=== PATIENT | female | born 1995 | race Hispanic/Latino ===

== ENCOUNTER 2016-12-14 00:02 | Emergency (ER) | payer OTHER ==
[~2016-12-14] VITALS: Ht 152.4 cm; Wt 51.4 kg
[~2016-12-14 00:02] MED LIST: PRE20 PO
[2016-12-14 00:17] VITALS: BP 116/82; PULSE 86; RESP 18; O2SAT 100
--- NOTE | 2016-12-14 00:27 | ED.REPORT ---
HPI-Abd Pain F Under 38 Date of Service Dec 14, 2016 ED Provider: Dr. Jarquin Pt is a healthy 21 year old female who presents to the ED with complaints of left sided flank pain that started a couple of days ago. She reports that this pain is exacerbated with deep breathing or if she "laughs really hard". She denies any fever, nausea, vomiting, or any sense of a urinary tract infection. Pt reports no other complaints. Nursing Notes Stated Complaint: FLANK PAIN Chief Complaint: Female Abdominal Pain Nursing Notes Reviewed: Yes Allergies: Coded Allergies: No Known Allergies (Unverified , 10/23/15) Scheduled Prednisone (PredniSONE) 20 Mg Tablet 20 MG PO TID General Time Seen by MD: 00:26 Chief Complaint Flank pain left Hx Obtained From: Patient Arrived By: Walk-in Sudden in Onset?: Yes Onset Occurred: 3 days ago Symptom Duration: Since onset Location: : Flank left Quality: Painful Severity: Current: Mild Severity: Maximum: Moderate Similar Sx Previous: Yes Past Medical History Past Medical History None Past Surgical History Reports: Appendectomy Family History Noncontributory Smoking History Never Smoker Ambulatory Status Independent Review of Systems Constitutional: Denies: Chills, Fever, Malaise, Weakness - generalized Respiratory: Denies: Shortness of breath, Wheezing GI: Denies: Abdominal pain, Constipation, Diarrhea, Nausea, Vomiting Female: Reports: Flank pain, Denies: Dysuria, Urinary frequency, Urinary urgency Complete sys rev & neg: except as marked. Physical Exam Initial Vital Signs Vital Signs (First) Date Time Temp Pulse Resp B/P Pulse Ox O2 Delivery O2 Flow Rate FiO2 12/14/16 00:17 36.3 86 18 116/82 100 Room Air Initial VS: Reviewed Head / Eyes: Atraumatic, Normocephalic, PERRL ENT: Mucous membranes moist, Conjunctiva normal, No scleral icterus Neck: Supple, Non-tender, Full range of motion Skin: Warm, Dry, No cyanosis Neurologic: Alert, Oriented, Nonfocal General/Constitutional: Awake, Alert, Well appearing, Well developed, Well nourished, Cooperative Respiratory / Chest: Atraumatic, Breath sounds NL, Breath sounds = bilat, No respiratory distress Cardiovascular: Heart rate NL, Regular rhythm, Heart sounds NL, No gallop, No murmurs, No rubs Abdomen: Atraumatic, Soft, Non-tender, No guarding, No rebound Back: Atraumatic, Inspection NL, No CVA tenderness Interpretation & Diagnostics Lab Results Interpretation Result Diagram: 12/14/16 0129 12/14/16 0129 Test 12/14/16 00:30 12/14/16 01:29 Urine Color Yellow (YELLOW) Urine Appearance Clear (CLEAR,HAZY) Urine pH 6.5 (5.0-8.0) Urine Specific [place] 1.025 (1.003-1.035) Urine Protein Negativemg/dL (NEG,TRACE) Urine Glucose (UA) Negativemg/dL (NEGATIVE) Urine Ketones Negativemg/dL (NEGATIVE) Urine Occult Blood Small (NEGATIVE) Urine Nitrite Negative (NEGATIVE) Urine Bilirubin Negative (NEGATIVE) Urine Urobilinogen Normalmg/dL (NORMAL) Urine Leukocyte Esterase Negative (NEGATIVE) Urine RBC 3-10/hpf (0-2) Urine WBC 0-5/hpf (0-5) Urine Epithelial Cells Occasional/hpf (NONE-MOD) Urine Crystals Amorphous urates (NONE Urine Bacteria Few/hpf (NONE-FEW) Urine Hyaline Casts None/lpf (NONE) Urine Granular Casts None seen (NONE SEEN) Urine Waxy Casts None seen (NONE SEEN) Urine Red Blood Cell Casts None seen (NONE SEEN) Urine White Blood Cell Casts None seen (NONE SEEN) Urine Mucus Present (None Seen) Urine Trichomonas None seen (NONE SEEN) Urine Yeast None (NONE SEEN) Urinalysis Comment None Urine Culture Reflexed Not indicated Hold Urine Received (Received) White Blood Count 7.5th/mm3 (3.8-10.1) Red Blood Count 4.49mil/mm3 (3.90-5.20) Hemoglobin 13.0g/dL (12.0-15.6) Hematocrit 39.4% (35.0-46.0) Mean Corpuscular Volume 87.8fL (81-100) Mean Corpuscular Hemoglobin 29.0pg (27.0-35.0) Mean Corpuscular Hemoglobin Concent 33.0% (32.0-37.0) Red Cell Distribution Width 13.1% (12.3-15.4) Platelet Count 263bil/L (150-400) Neutrophils (%) (Auto) 44.3% (40-74) Lymphocytes (%) (Auto) 45.2% (14-46) Monocytes (%) (Auto) 8.0% (4-12) Eosinophils (%) (Auto) 2.0% (0-5) Basophils (%) (Auto) 0.4% (0-3) D-Dimer < 0.5mg/L (<0.50) Sodium Level 142mEq/L (134-144) Potassium Level 3.5mEq/L (3.5-5.2) Chloride Level 104mEq/L (97-108) Carbon Dioxide Level 25mmol/L (18-29) Blood Urea Nitrogen 12mg/dL (6-20) Creatinine 0.39mg/dL (0.57-1.00) Estimat Glomerular Filtration Rate 292mL/min (>59) Glucose Level 105mg/dL (60-99) Calcium Level 9.5mg/dL (8.5-10.1) Total Bilirubin 0.2mg/dL (0.0-1.2) Aspartate Amino Transf (AST/SGOT) 20U/L (0-50) Alanine Aminotransferase (ALT/SGPT) 22U/L (0-32) Alkaline Phosphatase 118U/L (25-150) Total Protein 7.6g/dL (6.4-8.4) Albumin 4.6g/dL (3.4-5.0) Hold Gage Top Tube Received (Received) Re-Eval/Medical Decision Med Decision/Clinical Course I discussed outpatient follow-up versus emergency Department CT scan. Enma prefers to have the CT scan performed tonight because she does not have very good follow-up. Taking count that she has flank pain with hematuria a CT scan was indicated. CT scan was essentially normal. We will culture her urine. Start on empiric Bactrim. Naprosyn for pain. Close outpatient follow-up. Source of Hx: Old records Re-Evaluation/Progress : Re-Evaluation/Progress Note: Pt is rechecked and informed of her lab results and the plan to discharge her at this time. She understands and agrees, all questions are addressed. Counseled Regarding: Diagnosis, Lab results, Need for follow-up, When/why to return to ED Discharge & Departure Shift Change Sign-Out Response to Therapy: Improved Primary Impression: Flank pain Additional Impression: Hematuria Disposition: Home Discharge Condition All VS Reviewed: Yes Condition: Stable Patient Instructions: Acute Abdominal Pain (ED), Acute Hematuria (ED) Additional Instructions: The cause of your pain is uncertain. You do have blood in your urine so perhaps you are passed a kidney stone or possibly this could be an infection. The CAT scan did not show any acute kidney stones. No signs of hydronephrosis. We will culture your urine. I recommend that you set up a follow-up with your primary care physician. You may need further imaging if the pain persists. Take Naprosyn twice daily as directed for pain. Call your doctor tomorrow to set up a follow-up. Return if any problems or any worsening symptoms. The urine culture should be available within 3-4 days. Referrals: [facility] Tal Attestation Portions of this note were transcribed by Vicky Luis. I, Dr. Jarquin personally performed the history, physical exam and medical decision-making; I reviewed and confirmed the accuracy of the information in the transcribed note. Signed by: Tal Gan, 12/13/2016 [Time]. copies to: [facility] Nakul Jarquin DO Dec 14, 2016 00:27 AC LUIS Dec 14, 2016 01:00
[2016-12-14 01:05] LABS: APPEARANCE,URINE CLEAR (CLEAR,HAZY); COLOR,URINE YELLOW (YELLOW); OCCULT BLOOD,URINE SMALL (NEGATIVE); PH,URINE 6.5 (5.0-8.0); UROBILINOGEN,URINE NORMAL (NORMAL)
[2016-12-14 01:39] LABS: BASOPHILS % (AUTO) 0.4 % (0-3); Mean Corpuscular Volume 87.8 fL (81-100); NEUTROPHILS % (AUTO) 44.3 % (40-74); Platelet Count 263 bil/L (150-400)
[2016-12-14 03:21] VITALS: BP 110/75; PULSE 78; RESP 16; O2SAT 98
--- NOTE | 2016-12-14 10:09 | DRSVH ---
PROCEDURE: CT KUB ([id number]) INDICATIONS: left flank pain, hematuria TECHNIQUE: Noncontrast 5 mm thick sections acquired from the diaphragms to the symphysis. 5 mm thick coronal an d sagittal reformats were then performed. For radiation dose reduction, the following was used: aut omated exposure control, adjustment of mA and/or kV according to patient size. COMPARISON: Located Within [facility], CT, CT ABD PELVIS W CON, 10/24/2015, 1:40. FINDINGS: Image quality: Excellent. Lung bases: Lung bases are clear. Heart size is normal. Urinary system: Both kidneys are normal in size. No kidney stones. No hydronephrosis or perinephri c fat stranding. Both ureters appear non-dilated throughout their expected courses. Bladder wall th ickness is normal; no calcified bladder stones. Other solid organs: Liver and spleen are normal in size. Gallbladder is within normal limits. Panc reas is normal in contours. No adrenal nodules. Peritoneum and bowel: Unenhanced bowel loops demonstrate normal wall thickness and caliber. No free fluid or air. The appendix is surgically absent Nodes and vessels: No retroperitoneal or mesenteric adenopathy by size criteria. Aorta and inferior vena cava are normal in caliber. Abdominal wall: No ventral hernias. Pelvis: No free pelvic fluid. No inguinal hernias or adenopathy. Bones: No suspicious bony lesions. No vertebral body compression fractures. IMPRESSION: No renal stone or hydronephrosis. Dictated by: Morenita Edwards MD, PhD on 12/14/2016 at 10:03 Approved by: Morenita Edwards MD, PhD on 12/14/2016 at 10:08
== END 2016-12-14 03:16 | disposition home or self-care (01) ==
LOC: SED 00:02
DX: R10.32 Left lower quadrant pain (principal); R31.9 Hematuria, unspecified

== ENCOUNTER 2017-05-06 02:49 | Emergency (ER) | payer OTHER ==
[~2017-05-06] VITALS: Ht 152.4 cm; Wt 53.2 kg
[2017-05-06 03:01] VITALS: BP 118/75; PULSE 75; RESP 16; O2SAT 100
--- NOTE | 2017-05-06 03:04 | ED.REPORT ---
HPI-Headache Date of Service May 06, 2017 ED Provider: Dr. Young Reina MD A 22 year old female presents to the ED complaining of an intermittent, sharp headache that began at 1300 in the afternoon. Patient took Aspirin with little relief. She has also been experiencing nausea without vomiting. She denies any recent similar symptoms previously. Patient denies any visual disturbances, numbness/weakness in the extremities, neck stiffness, fever, chills or recent injuries. Nursing Notes Stated Complaint: HEADACHE,NAUSEA Chief Complaint: Headache Nursing Notes Reviewed: Yes Allergies: Coded Allergies: No Known Allergies (Unverified , 05/06/17) Scheduled Prednisone (PredniSONE) 20 Mg Tablet 20 MG PO TID Scheduled PRN Prochlorperazine Maleate (Compazine Suppository) 25 Mg Supp.rect 25 MG RC Q8 PRN PRN For Nausea/Vomiting General Time Seen by MD: 03:04 Chief Complaint Headache Hx Obtained From: Patient Arrived By: Walk-in Sudden in Onset?: No Onset Occurred: 9 - 12 hours ago Symptom Duration: Intermittent Location: : Generalized Quality: Aching, Sharp Severity: Current: Mild Severity: Maximum: Mild Associated with: Reports: Nausea, Denies: Fever, Numbness, Vomiting, Weakness Pertinent Negative: Pt denies other symptoms Recent Healthcare: No recent doctor visit, No recent hospitalization Risk-Headache )( SAH Risk Stratification RF Statements: Risk factors reviewed )( IC Mass Risk Stratification RF Statements: Risk factors reviewed Past Medical History Past Medical History None reported. Past Surgical History Appendectomy Family History Noncontributory Smoking History Never Smoker Social History Other Social History: Local resident Ambulatory Status Independent Review of Systems Constitutional: Denies: Chills, Fever GI: Reports: Nausea, Denies: Vomiting Musculoskeletal: Denies: Neck pain Neurologic: Reports: Headache, Denies: Numbness, Vision change, Weakness Complete sys rev & neg: except as marked. Physical Exam Initial Vital Signs Vital Signs (First) Date Time Temp Pulse Resp B/P Pulse Ox O2 Delivery O2 Flow Rate FiO2 05/06/17 03:01 36.3 75 16 118/75 100 Room Air Initial VS: Reviewed Extremities: Vascular intact, Neuro intact, No swelling, No tenderness Skin: Warm, Dry, No cyanosis Psychiatric: Mood/affect normal, Behavior normal, Normal thought content General/Constitutional: Awake, Alert, No acute distress Head / Eyes: Atraumatic, Normocephalic, PERRL Neck: Atraumatic, Supple, No meningismus, Full range of motion Neurologic: Oriented X3, Speech NL, No motor deficits, No sensory deficits, CN II - XII intact, Reflexes equal bilat, Cerebellar NL Respiratory / Chest: Atraumatic, Breath sounds NL, Breath sounds = bilat, No respiratory distress Cardiovascular: Heart rate NL, Regular rhythm, Heart sounds NL Interpretation & Diagnostics Lab Results Interpretation Result Diagram: 05/06/17 0337 05/06/17 0337 Test 05/06/17 03:37 White Blood Count 9.1th/mm3 (3.8-10.1) Red Blood Count 4.41mil/mm3 (3.90-5.20) Hemoglobin 13.2g/dL (12.0-15.6) Hematocrit 38.6% (35.0-46.0) Mean Corpuscular Volume 87.5fL (81-100) Mean Corpuscular Hemoglobin 29.9pg (27.0-35.0) Mean Corpuscular Hemoglobin Concent 34.2% (32.0-37.0) Red Cell Distribution Width 12.9% (12.3-15.4) Platelet Count 275bil/L (150-400) Neutrophils (%) (Auto) 56.2% (40-74) Lymphocytes (%) (Auto) 36.0% (14-46) Monocytes (%) (Auto) 5.5% (4-12) Eosinophils (%) (Auto) 1.9% (0-5) Basophils (%) (Auto) 0.3% (0-3) Erythrocyte Sedimentation Rate 20mm/hr (0-32) Hold Urine Received (Received) Sodium Level 140mEq/L (134-144) Potassium Level 3.9mEq/L (3.5-5.2) Chloride Level 102mEq/L (97-108) Carbon Dioxide Level 23mmol/L (18-29) Blood Urea Nitrogen 11mg/dL (6-20) Creatinine 0.48mg/dL (0.57-1.00) Estimat Glomerular Filtration Rate 228mL/min (>59) Glucose Level 123mg/dL (60-99) Calcium Level 9.5mg/dL (8.5-10.1) C-Reactive Protein < 0.0mg/dL (0.0-0.5) Point of Care Testing: Preg test neg - urine CT Head Interpretation IMPRESSION: Normal head CT Study: Head CT no contrast Interpretation / Wet Read by: Interpret - Radiologist (Nightshift) Re-Eval/Medical Decision Med Decision/Clinical Course 22-year-old with new onset of what is probably a migrainous headache. Negative scan tonight. No neck stiffness no neuro findings and low suspicion for meningitis or bleed. I do not believe that the risk is sufficient to justify a lumbar puncture at this point. Pain has Improved with standard migraine cocktail meds. Home with Advil migraine and Compazine suppository if needed. Follow up with PCP. Referred [facility] residency clinic if needed. Re-Evaluation/Progress : Time of Eval: 06:31 )( Patient Status: Condition improved Re-Evaluation/Progress Note: Patient is re-evaluated. Discussed lab results with the patient. All questions about the treatment plan are addressed. The patient understands and agrees with the intended treatment plan. Counseled Regarding: Diagnosis, Lab results, Need for follow-up, When/why to return to ED Discharge & Departure Impression: Primary Impression: Migraine Migraine type: unspecified Status migrainosus presence: without status migrainosus Intractability: not intractable Qualified Code: G43.909 - Migraine, unspecified, not intractable, without status migrainosus Disposition: Home Discharge Condition All VS Reviewed: Yes Condition: Improved Patient Instructions: Acute Headache (ED), Migraine Headache (ED) Additional Instructions: This headache is likely a migraine. You may have similar in the future, and you may not. There is no evidence of bleeding, tumor or other dangerous cause. You may use [id number] migraine preparations such as Advil migraine. If you need additional pain relief, you may use Compazine suppository, which is helpful for both the nausea and the headache. Follow-up with your doctor in the office. If you need local coverage, the residency clinic can provide ongoing local care. Referrals: [facility] (PCP) [facility] Scribe Attestation Portions of this note were transcribed by Selena Oakes. I, Dr. Reina personally performed the history, physical exam and medical decision-making; I reviewed and confirmed the accuracy of the information in the transcribed note. Signed by: Tal Lim, 05/06/17 [id number]. Young Reina MD May 06, 2017 03:04 SELENA OAKES May 06, 2017 03:08
[2017-05-06] MEDS ORDERED: 0.9% Sodium Chloride 1,000 ML IV ONE (03:24)
[2017-05-06] MEDS ORDERED: Dexamethasone 10 mg/mL Inj IVPUSH ONE (03:25)
[2017-05-06] MEDS ORDERED: Haloperidol 5 mg/mL Inj IVPUSH ONE (03:25)
[2017-05-06] MEDS ORDERED: Ondansetron 2 mg/mL 2 mL Inj IVPUSH ONE (03:25)
[2017-05-06 03:54] LABS: BASOPHILS % (AUTO) 0.3 % (0-3); EOSINOPHILS % (AUTO) 1.9 % (0-5); MONOCYTES % (AUTO) 5.5 % (4-12); Mean Corpuscular Hemoglobin 29.9 pg (27.0-35.0); Mean Corpuscular Volume 87.5 fL (81-100); NEUTROPHILS % (AUTO) 56.2 % (40-74); Platelet Count 275 bil/L (150-400)
[2017-05-06 04:19] LABS: ERYTHROCYTE SEDIMENTATION RATE 20 mm/hr (0-32)
[2017-05-06] MEDS ORDERED: PROC25SU30 RC (06:27)
[2017-05-06 06:42] VITALS: BP 107/67; PULSE 86; RESP 16; O2SAT 97
--- NOTE | 2017-05-06 07:46 | DRSVH ---
PROCEDURE: CT BRAIN WITHOUT CONTRAST ([id number]) INDICATIONS: first/worst headache. TECHNIQUE: Noncontrast 4.5 mm thick angled axial sections acquired from the foramen magnum to the vertex, with c oronal reformats. COMPARISON: None. FINDINGS: Image quality: Excellent. CSF spaces: Basal cisterns are patent. No extra-axial fluid collections. Ventricles are normal in size and shape. Brain: No midline shift. No intracranial masses or hemorrhage. Oneal-white matter interface is norm al. Skull and face: Calvarium and visualized facial bones are intact, without suspicious lesions. Sinuses: Visualized sinuses and mastoids are clear. IMPRESSION: Normal head CT. No significant discrepancy with the mechatronics engineer radiology preliminary report. Dictated by: Jay Hardy M.D. on 05/06/2017 at 7:44 Approved by: Jay Hardy M.D. on 05/06/2017 at 7:44
== END 2017-05-06 06:43 | disposition home or self-care (01) ==
LOC: SED 02:49
DX: G43.909 Migraine, unspecified, not intractable, without status migrainosus (principal)
CPT/HCPCS: 36415; 70450; 80048; 81025; 85025; 85651; 86140; 96361; 96374; 96375; 99285; J1100; J1200; J1630; J2405; J7030